=== PATIENT | male | born 1970 | race Caucasian/White ===

== ENCOUNTER 2025-02-06 06:53 | Emergency (ER) | payer OTHER ==
[~2025-02-06] VITALS: Ht 175.3 cm; Wt 99.3 kg
[2025-02-06 07:57] LABS: NUCLEATED RED BLOOD CELLS 0.0 % (0.0-0.19); PLATELET COUNT (AUTO) 168 K/uL (130-400); RED BLOOD CELL COUNT(AUTO) 5.02 MIL/uL (4.50-6.20); RED CELL DISTRIBUTION WIDTH 13.9 % (11.0-15.5); WHITE BLOOD COUNT (AUTO) 7.5 K/uL (4.8-10.8)
[2025-02-06 08:09] LABS: CREATININE 1.0 mg/dL (0.5-1.3); GLOMERULAR FILTR. RATE CALC 90.0 mL/min (>90); GLUCOSE,RANDOM 108.0 mg/dL (70-105); SODIUM SERUM 141.0 mmol/L (136-145); UREA NITROGEN, BLOOD 12.0 mg/dL (7-18)
[2025-02-06] MEDS ORDERED: COLC0.6C3 PO (08:22)
[2025-02-06] MEDS ORDERED: NAPR-1196 PO (08:22)
--- NOTE | 2025-02-06 08:23 | ERN ---
ED Note History of Present Illness Stated Complaint: C/O ANKLE PAIN, GOUT FLAREUP Chief Complaint: Ankle Problem Time Seen by MD: 07:17 Dictation: 54-year-old male with right ankle pain and swelling over the past few days history gout last flare-up three years ago pain is 8/10 constant throbbing. Allergies: Coded Allergies: Penicillins (Unverified Allergy, Unknown, 02/06/25) Past Medical History Past Medical History: Other Additional Past Medical Hx: HX OF GOUT Surgical History: Cholecystectomy Review of System Dictation Constitutional: Negative for fever,chills, and weight loss Eyes: Negative for injury, pain,redness, and discharge ENT: Negative for injury,pain or swelling Cardiovascular: Negative for chest pain, palpitations, and edema Respiratory: Negative for shortness of breath, cough, and wheezing, Abdomen/GI: Negative for abdominal pain, nausea, vomiting, diarrhea, and constipation Back: Negative for injury and pain : Negative for injury, bleeding and discharge MS/Extremity: Per HPI Skin: Negative for rash, and discoloration Neuro: Negative for headache, weakness, numbness, tingling, and seizure Psych: Negative for suicide ideation, homicidal ideation, and hallucinations Initial Vital Sign VS Vital Signs Date Time Temp Pulse Resp B/P (MAP) Pulse Ox O2 Delivery O2 Flow Rate FiO2 02/06/25 06:56 98.2 76 18 155/98 99 Room Air Physical Exam Dictation General: awake, alert, NAD Head/Face: Normocephalic, atraumatic Eyes: PERRL, EOMI, vision at baseline ENT: oral cavity clear, TMs clear, no signs of infection Neck: Trachea midline, supple, no nuchal rigidity Cardiovascular: RRR, normal S1/S2, No MRGs, no JVD Respiratory: CTAB, no respiratory distress, No rales or wheezes Abdomen: Soft, non-tender, non-distended, normal bowel sounds, no guarding or rebound. Skin: Warm, dry, normal turgor, no rash MS/Extremity: Pulses equal, no cyanosis, neurovascular intact, FROM, mild tenderness around right ankle 2+ pulses Neuro: COAx4, GCS 15, strength 5/5, CN 2-12 intact, normal cerebellar exam, normal gait, Psych: Normal behavior, mood, and affect normal Results (Laboratory/Radiology) Laboratory/Radiology Laboratory Tests Test 02/06/25 07:48 White Blood Count 7.5 K/uL (4.8-10.8) Red Blood Count 5.02 MIL/uL (4.50-6.20) Hemoglobin 16.4 g/dL (14.0-18.0) Hematocrit 44.5 % (42-54) Mean Corpuscular Volume 88.6 fL (79-99) Mean Corpuscular Hemoglobin 32.7 pg (27.0-33.0) Mean Corpuscular Hemoglobin Concent 36.9 g/dL (32.0-36.0) H Red Cell Distribution Width 13.9 % (11.0-15.5) Platelet Count 168 K/uL (130-400) Mean Platelet Volume 9.4 fL (7.5-10.5) Nucleated Red Blood Cells 0.0 % (0.0-0.19) Sodium Level 141 mmol/L (136-145) Potassium Level 3.9 mmol/L (3.5-5.1) Chloride Level 104 mmol/L (101-111) Carbon Dioxide Level 29 mmol/L (21-32) Blood Urea Nitrogen 12 mg/dL (7-18) Creatinine 1.0 mg/dL (0.5-1.3) Glomerular Filtration Rate Calc 90 mL/min (>90) Random Glucose 108 mg/dL (70-105) H Uric Acid 9.0 mg/dL (2.6-7.2) H Total Calcium 8.8 mg/dL (8.5-10.1) Labs Reviewed?: Yes ED Course ED Course Orders Procedure Category Date Status Time Cbc Without LAB 02/06/25 In Process Differential 07:37 Basic Metabolic Panel LAB 02/06/25 Complete 07:37 Uric Acid LAB 02/06/25 Complete 07:37 Hydrocodone/Apap PHA 02/06/25 Complete 10325 Tab (Walker 10) 08:00 Ketorolac PHA 02/06/25 Complete Tromethamine 15mg/Ml 08:00 Current Medications Medications (Trade) Dose Ordered Sig/Roxanne Route PRN Reason Start Time Stop Time Status Last Admin Dose Admin Acetaminophen/ Hydrocodone Bitart (NORco 10) 1 tab ONCE ONCE PO 02/06/25 08:00 02/06/25 08:01 DC 02/06/25 07:55 Ketorolac Tromethamine (toRADol) 15 mg ONCE ONCE IM 02/06/25 08:00 02/06/25 08:01 DC 02/06/25 07:55 Vital Signs Date Time Temp Pulse Resp B/P (MAP) Pulse Ox O2 Delivery O2 Flow Rate FiO2 02/06/25 06:56 98.2 76 18 155/98 99 Room Air Medical Decision Making MDM MDM: Differential diagnosis: Rationale: Tests considered and ordered secondary to shared decision making include: Previous outside records reviewed: Old ER visits. Risk of complication and/or morbidity or mortality of patient management: None Medications-Per medication reconciliation Need for hospitalization: Patient does not meet criteria for hospitalization. Need for emergency major/minor surgery: No There are no social concerns with this patient. Prescription drug management Prescriptions will include symptomatic care Patient's prior external medical records from other ER visits were reviewed by me as indicated. Prior testing and results from previous visits were reviewed. Prior tests were taken into account with medical decision making and resource utilization, independent historian/historians were used to obtain complete medical history. I independently interpreted the test that were performed, results were reviewed by me and considered findings on radiology if ordered. Medical management and examination interpretation discussions were had by me with other qualified healthcare professionals as indicated for the patient's care. 54-year-old male and gouty flares stable exam vital signs stable neurovascularly intact distally no signs of blood clot, CBC chemistry and uric acid all correlate with clinical diagnosis pain controlled placed on prescriptions. DX & DISP Disposition: Discharge Departure Impression: Primary Impression: Gouty arthritis of right ankle Condition: Stable Scripts Naproxen (Naproxen) 250 Mg Tablet 250 MG PO BID for 5 Days, #10 TAB Prov: DANIELLE YIN MD 02/06/25 Colchicine (Colchicine) 0.6 Mg Capsule 1 CAP PO DAILY for 30 Days, #30 CAP 0 Refills Prov: DANIELLE YIN MD 02/06/25 Referrals: SELF,REFERRAL (PCP) DANIELLE YIN MD Feb 06, 2025 08:23
[2025-02-06 08:30] VITALS: BP 140/84; PULSE 73; RESP 16; TEMP 98.5; O2SAT 98
== END 2025-02-06 08:37 | disposition home or self-care (01) ==
LOC: EDH 06:53
DX: M10.071 Idiopathic gout, right ankle and foot (principal); Z88.0 Allergy status to penicillin; Z90.49 Acquired absence of other specified parts of digestive tract
CPT/HCPCS: 99283; 84550; 80048; 85027; 36415; 96372; J1885